=== PATIENT | female | born 1975 | race African-American/Black ===

== ENCOUNTER 2016-11-12 12:14 | Emergency (ER) | payer OTHER ==
--- NOTE | ~2016-11-12 | CT2 ---
[facility] A Service of [facility] RADIOLOGY TEXT RESULTS PATIENT: SINAN HARDIN LOCATION: [place] : [birth year] UNIT #: [id number] AGE: [address]: Jazlyn Hoang SEX: F ORDER DR: [id number] [facility]. [place], [place] [address] [id number] MR#: [id number] Acc #: [id number] NAME: SINAN HARDIN : 1975 SEX: F STUDY DATE/TIME: 11/12/2016 15:17 UNIT: [place] ROOM: STUDY DESCRIPTION: CT Abd and Pelv W Cont Attending Physician: Jazlyn Hoang Pa-C Ordering Physician: Jazlyn Hoang Pa-C Primary Care Physician: No Primary Care Physician MEDICAL IMAGING REPORT This report is preliminary unless electronic signature is present EXAM CT of the abdomen and pelvis with contrast INDICATIONS 41-year-old female with nausea and vomiting for 2 days and abdominal pain. TECHNIQUE CT of the abdomen and pelvis was performed following the administration of IV contrast. Coronal and sagittal reformatted images were obtained. No comparisons. This CT exam was performed with one or more of the following radiation dose reduction techniques: Automatic exposure control, adjustment of mA and/or kV according to patient size, and iterative reconstruction. FINDINGS There is mild bibasilar atelectasis. The liver is unremarkable. Cholecystectomy. The spleen is unremarkable. The kidneys, adrenal glands and pancreas are unremarkable. Stomach unremarkable. No dilated loops of small bowel. PELVIS: There are scattered diverticula within the colon. The appendix appears surgically absent. No free fluid. Bone windows are unremarkable. IMPRESSION 1. No acute intraabdominal or pelvic abnormality. 2. Cholecystectomy. 3. Appendectomy. 4. Scattered diverticula within the colon. Dictated by... Jef Chacko M.D. [facility] A Service of [facility] & [facility] RADIOLOGY TEXT RESULTS PATIENT: SINAN HARDIN LOCATION: [place] : [birth year] UNIT #: [id number] AGE: [address]: Jazlyn Hoang SEX: F ORDER DR: THIS IS AN ELECTRONICALLY VERIFIED REPORT Jef Chacko M.D. at 11/13/2016 4:43 PM KAYLA/phoebe TD: 11/12/2016 21:28 JOB #: [id number] MEDICAL IMAGING REPORT COPY
[2016-11-12 12:02] LABS: URINE SOURCE CLEAN CATCH
[2016-11-12 12:08] LABS: URINE APPEARANCE CLOUDY; URINE BILIRUBIN NEG (NEG); URINE BLOOD NEG (NEG); URINE COLOR YELLOW; URINE GLUCOSE NEG (NEG); URINE KETONE NEG (NEG); URINE LEUKOCYTE ESTERASE TRACE (NEG); URINE NITRATE NEG (NEG); URINE PH 6.5 (5-8); URINE PROTEIN NEG (NEG); URINE SPECIFIC GRAVITY 1.017 (1.003-1.035)
[2016-11-12 12:12] LABS: CULTURE INDICATED? YES; URBCS1 AUWI 0-2 /[HPF] (0-2); URINE BACTERIA AUWI 2+ (NEGATIVE); URINE SQUAMOUS EPITHELIAL CELL MOD /[HPF]
[2016-11-12 12:13] LABS: BASOPHIL# 0.1 X10e3 (0-0.3); BASOPHIL% 0.5 % (0-2.5); EOSINOPHIL# 0.5 X10e3 (0-0.7); EOSINOPHIL% 4.6 % (0.0-7.0); HEMATOCRIT 38.8 % (35.0-45.0); HEMOGLOBIN 13.2 gm/dL (12.0-16.0); LYMPHOCYTE# 3.1 X10e3 (1.0-3.5); LYMPHOCYTE% 28.2 % (17.0-45.0); MEAN CELL VOLUME 89.9 FL (83-96); MEAN CORPUSCULAR HEMOGLOBIN 30.5 PG (28-34); MEAN PLATELET VOLUME 6.5 FL (6.5-11.5); MONOCYTE# 0.5 X10e3 (0-1.0); MONOCYTE% 4.9 % (3.0-12.0); NEUTROPHIL# 6.8 X10e3 (1.5-7.1); NEUTROPHIL% 61.8 % (40-75); PLATELET COUNT 363 X10e3 (140-420); RED BLOOD COUNT 4.32 X10e (3.90-5.30); RED CELL DISTRIBUTION WIDTH 14.5 % (11.0-15.5); WHITE BLOOD COUNT 10.9 X10e3 (4.0-10.5)
[2016-11-12 12:16] LABS: DIFF IND NO
[2016-11-12 12:43] LABS: AMYLASE 8 U/L (0-46); BLOOD UREA NITROGEN 9 mg/dL (9-23); BUN/CREATININE RATIO 11.25; CALCIUM SERUM 8.7 mg/dL (8.4-10.2); CARBON DIOXIDE 26 mmol/L (22-31); CHLORIDE 104 mmol/L (100-111); CREATININE SERUM 0.8 mg/dL (0.6-1.4); GLOM FILT RATE Estimated ABOVE60 mL/min (>60); GLUCOSE FASTING 96 mg/dL (70-110); LIPASE 16 U/L (22-51); POTASSIUM 3.4 mmol/L (3.5-5.1); SODIUM 139 mmol/L (135-145)
== END 2016-11-12 17:15 | disposition home or self-care (01) ==
LOC: CED 12:14
PROVIDERS: Physician Assistant Medical
DX: N39.0 Urinary tract infection, site not specified (principal); I10 Essential (primary) hypertension; F17.210 Nicotine dependence, cigarettes, uncomplicated; Z90.49 Acquired absence of other specified parts of digestive tract
CPT/HCPCS: 36415; 74177; 80048; 81003; 82150; 83690; 85025; 87086; 96361; 96372; 96374; 96375; 99284; J1885; J2405; J2550; Q9967

== ENCOUNTER 2017-01-24 11:21 | Emergency (ER) | payer OTHER ==
[2017-01-24 11:59] LABS: URINE SOURCE CLEAN CATCH
[2017-01-24 12:37] LABS: URINE APPEARANCE CLEAR; URINE BILIRUBIN NEG (NEG); URINE BLOOD NEG (NEG); URINE COLOR YELLOW; URINE GLUCOSE NEG (NEG); URINE KETONE NEG (NEG); URINE LEUKOCYTE ESTERASE NEG (NEG); URINE NITRATE NEG (NEG); URINE PH 7.5 (5-8); URINE PROTEIN NEG (NEG); URINE SPECIFIC GRAVITY 1.009 (1.003-1.035); URINE UROBILINOGEN 0.2 MG/DL (NEG)
[2017-01-24 12:53] LABS: CULTURE INDICATED? NO
[2017-01-24 13:07] LABS: BASOPHIL# 0.1 X10e3 (0-0.3); BASOPHIL% 0.7 % (0-2.5); EOSINOPHIL# 0.3 X10e3 (0-0.7); EOSINOPHIL% 2.3 % (0.0-7.0); HEMOGLOBIN 13.6 gm/dL (12.0-16.0); LYMPHOCYTE# 3.9 X10e3 (1.0-3.5); LYMPHOCYTE% 32.7 % (17.0-45.0); MEAN CELL VOLUME 91.1 FL (83-96); MEAN CORPUSCULAR HEMOGLOBIN 30.3 PG (28-34); MEAN CORPUSCULAR HGB CONC 33.3 g/dL (30-36); MONOCYTE# 0.6 X10e3 (0-1.0); MONOCYTE% 4.8 % (3.0-12.0); NEUTROPHIL# 7.1 X10e3 (1.5-7.1); NEUTROPHIL% 59.5 % (40-75); PLATELET COUNT 351 X10e3 (140-420); RED CELL DISTRIBUTION WIDTH 13.4 % (11.0-15.5)
[2017-01-24 13:12] LABS: DIFF IND NO
[2017-01-24 13:35] LABS: ALBUMIN SERUM 3.7 g/dL (3.5-5.0); BILIRUBIN, DIRECT 0.1 mg/dL (0.0-0.2); BILIRUBIN,INDIRECT 0.5 mg/dL (0.0-0.9); BILIRUBIN,TOTAL 0.6 mg/dL (0.2-2.0); BUN/CREATININE RATIO 8.57; CALCIUM SERUM 8.7 mg/dL (8.4-10.2); CREATININE SERUM 0.7 mg/dL (0.6-1.4); GLOM FILT RATE Estimated 123.9 mL/min (>60); POTASSIUM 3.5 mmol/L (3.5-5.1); PROTEIN TOTAL SERUM 7.5 g/dL (6.0-8.3)
== END 2017-01-24 15:37 | disposition home or self-care (01) ==
LOC: CED 11:21
DX: R10.84 Generalized abdominal pain (principal); R11.2 Nausea with vomiting, unspecified; R19.7 Diarrhea, unspecified; I10 Essential (primary) hypertension; F31.9 Bipolar disorder, unspecified; F17.210 Nicotine dependence, cigarettes, uncomplicated; Z90.49 Acquired absence of other specified parts of digestive tract
CPT/HCPCS: 36415; 80048; 80076; 81003; 83690; 85025; 96361; 96374; 99284; J1885

== ENCOUNTER 2017-05-11 11:02 | Emergency (ER) | payer OTHER ==
[~2017-05-11] VITALS: Ht 160 cm; Wt 95.2 kg
--- NOTE | ~2017-05-11 | CR126 ---
[facility] A Service of [facility] & [facility] RADIOLOGY TEXT RESULTS PATIENT: SINAN HARDIN LOCATION: [facility] : [birth year] UNIT #: [id number] AGE: [address]: Parviz Nathan MD SEX: F ORDER DR: [id number] [facility] [address] [facility]. [place], [place] [address] [id number] E MR#: [id number] Acc #: [id number] NAME: SINAN HARDIN : 1975 SEX: F STUDY DATE/TIME: 05/11/2017 12:17 UNIT: [facility] ROOM: STUDY DESCRIPTION: CR Foot Complete Min 3 View Lt Attending Physician: Parviz Nathan M.D. Ordering Physician: Parviz Nathan M.D. Primary Care Physician: No Primary Care Physician MEDICAL IMAGING REPORT This report is preliminary unless electronic signature is present EXAM Left foot. INDICATIONS Left foot pain and trauma for 4-5 days. FINDINGS Three views of the left foot without comparison. There is no acute fracture or dislocation. Alignment is anatomic. No foreign body. IMPRESSION Negative left foot. Dictated by... Memo Hough M.D. THIS IS AN ELECTRONICALLY VERIFIED REPORT Memo Hough M.D. at 05/14/2017 11:42 AM KAMI/racheal TD: 05/13/2017 19:07 JOB #: [id number] MEDICAL IMAGING REPORT Page 1 of 1 COPY
== END 2017-05-11 12:42 | disposition home or self-care (01) ==
LOC: CED 11:02
DX: M72.2 Plantar fascial fibromatosis (principal); I10 Essential (primary) hypertension; F17.200 Nicotine dependence, unspecified, uncomplicated
CPT/HCPCS: 73630; 99283